=== PATIENT | female | born 1960 | race Caucasian/White ===

== ENCOUNTER 2017-07-26 13:48 | Emergency (ER) | payer MEDICAID, OTHER ==
[~2017-07-26] VITALS: Ht 170.2 cm; Wt 74.8 kg
[2017-07-26 13:51] VITALS: BP 139/81
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
--- NOTE | 2017-07-26 14:03 | NUR ---
Patient being evaluated by DR RIVERS at bedside.
--- NOTE | 2017-07-26 14:34 | NUR ---
PT TAKEN TO [facility].
--- NOTE | 2017-07-26 14:47 | NUR ---
PT RETURNED FROM [facility]
[2017-07-26] MEDS ORDERED: KETOROLAC 60 MG/2 ML VIAL IM ONE (15:25)
--- NOTE | 2017-07-26 15:37 | NUR ---
Patient being reevaluated by DR RIVERS at bedside.
[2017-07-26 16:09] VITALS: BP 123/71
--- NOTE | 2017-07-26 16:09 | NUR ---
Patient discharged with v/s stable. Written and verbal after care instructions given and explained. Patient alert, oriented and verbalized understanding of instructions. Ambulatory with steady gait. All questions addressed prior to discharge. ID band removed. Patient advised to follow up with PMD. Rx of CLINDAMYCIN & KETOROLAC given. Patient educated on indication of medication including possible reaction and side effects. Opportunity to ask questions provided and answered.
== END 2017-07-26 16:09 | disposition home or self-care (01) ==
LOC: MED 13:48
DX: M79.674 Pain in right toe(s) (principal); E11.9 Type 2 diabetes mellitus without complications
CPT/HCPCS: 73660; 96372; 99284; J1885

== ENCOUNTER 2018-04-14 04:53 | Emergency (ER) | payer OTHER ==
[~2018-04-14] VITALS: Ht 170.2 cm; Wt 68.0 kg
[2018-04-14 04:59] VITALS: BP 148/76
--- NOTE | 2018-04-14 04:59 | NUR ---
TO BED # 3 AMBULATORY, REPORT GIVEN TO PETER COELHO
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
--- NOTE | 2018-04-14 05:10 | NUR ---
Dr. Bejarano evaluating patient at bedside.
[2018-04-14 05:42] VITALS: BP 148/76
--- NOTE | 2018-04-14 05:42 | NUR ---
Patient discharged with v/s stable. Written and verbal after care instructions given and explained. Patient alert, oriented and verbalized understanding of instructions. Ambulatory with steady gait. All questions addressed prior to discharge. ID band removed. Patient advised to follow up with PMD. Rx of AUGMENTIN WAS given. Patient educated on indication of medication including possible reaction and side effects. Opportunity to ask questions provided and answered.
== END 2018-04-14 05:42 | disposition home or self-care (01) ==
LOC: MED 04:53
DX: S61.052A Open bite of left thumb without damage to nail, initial encounter (principal); E11.9 Type 2 diabetes mellitus without complications; W53.11XA Bitten by rat, initial encounter; Y93.89 Activity, other specified; Y92.89 Other specified places as the place of occurrence of the external cause; Y99.8 Other external cause status
CPT/HCPCS: 90471; 90715; 99283

== ENCOUNTER 2021-09-11 01:15 | Emergency (ER) | payer OTHER ==
[~2021-09-11] VITALS: Ht 170.2 cm; Wt 86.8 kg
[2021-09-11 01:23] VITALS: BP 137/78
--- NOTE | 2021-09-11 01:27 | NUR ---
PT TAKEN TO BED 7
--- NOTE | 2021-09-11 01:43 | NUR ---
61 y/o f bib daughter . PT STATES SOB SINCE 1 WEEK AGO. ALBUTEROL IF NEEDED AND IT HELPED. COUGH AND TIGHTNESS AND HEAVINESS IN LUNGS. PT DENIES HAVING COVID. DENIES N/V/D; PMH: PRE DIABETIC IDIOPATHIOC THROMBOCYTOPENIA PURPURA x 30 YEARS. SOCIAL HX: NO SMOKING OR DRINKING WEED
--- NOTE | 2021-09-11 01:55 | NUR ---
Dr. Christina examming patient.
[2021-09-11] MEDS: ALBUTEROL SULFATE/IPRATROPIU 3 ML SOL IH ONE (02:11)
[2021-09-11 02:15] LABS: BASOPHILS # (AUTO) 0.1 K/uL (0.00-0.22); BASOPHILS % (AUTO) 1.2 % (0.0-2.0); EOSINOPHILS # (AUTO) 0.5 K/uL (0-0.4); EOSINOPHILS % (AUTO) 8.7 % (0.0-4.0); HEMATOCRIT 39.2 % (36-48); HEMOGLOBIN 13.2 g/dL (12.0-16.0); LYMPHOCYTES # (AUTO) 1.8 K/uL (2.5-16.5); LYMPHOCYTES % (AUTO) 29.1 % (20.5-51.1); MEAN CORPUSCULAR HEMOGLOBIN 29 pg (27-31); MEAN CORPUSCULAR HGB CONC 34 g/dL (33-37); MEAN CORPUSCULAR VOLUME 85.2 fL (80-94); MONOCYTES # (AUTO) 0.5 K/uL (0.8-1.0); NEUTROPHILS # (AUTO) 3.2 K/uL (1.8-7.7); PLATELET COUNT (AUTO) 90 K/uL (140-450); RED BLOOD CELL COUNT(AUTO) 4.61 MIL/uL (4.20-5.40); WHITE BLOOD COUNT (AUTO) 6.1 K/uL (4.8-10.8)
[2021-09-11] MEDS: predniSONE 20 MG TAB PO ONE (02:15)
--- NOTE | 2021-09-11 02:20 | NUR ---
CHAIN HOIST OPERATOR AT BEDSIDE.
--- NOTE | 2021-09-11 02:26 | NUR ---
LEAVE COORDINATOR LEFT PATIENT'S BEDSIDE.
[2021-09-11 02:27] LABS: ANION GAP 12.4 (8-16); CARBON DIOXIDE 27.3 mmol/L (21-32); CREATININE 0.9 mg/dL (0.6-1.3); POTASSIUM 3.7 mmol/L (3.5-5.1)
--- NOTE | 2021-09-11 03:07 | NUR ---
PATIENT AMBULATED TO BR.
[2021-09-11] MEDS ORDERED: PRED20TA5 PO (03:20)
[2021-09-11] MEDS ORDERED: AZIT250T4 PO (03:20)
[2021-09-11] MEDS ORDERED: PROM118S5 PO (03:20)
[2021-09-11] MEDS ORDERED: BENZ200C4 PO (03:20)
[2021-09-11] MEDS ORDERED: ALBU0.0912 INH (03:20)
[2021-09-11 03:37] VITALS: BP 135/76
--- NOTE | 2021-09-11 03:37 | NUR ---
The patient's care was reviewed and supervised by Ml Schmitt RN.
--- NOTE | 2021-09-11 03:37 | NUR ---
Patient discharged with v/s stable. Written and verbal after care instructions given and explained. Patient alert, oriented and verbalized understanding of instructions. Ambulatory with steady gait. All questions addressed prior to discharge. ID band removed. Patient advised to follow up with PMD. Rx of ALBUTEROL SULFATE, ZITHROMAX, BENZONATATE, PROMETHAZINE DM given. Opportunity to ask questions provided and answered.
== END 2021-09-11 03:37 | disposition home or self-care (01) ==
LOC: MED 01:15
DX: J20.9 Acute bronchitis, unspecified (principal); E11.9 Type 2 diabetes mellitus without complications; F12.90 Cannabis use, unspecified, uncomplicated; Z20.822 Contact with and (suspected) exposure to COVID-19; Z87.891 Personal history of nicotine dependence
CPT/HCPCS: 36415; 71045; 80048; 84484; 85025; 87426; 93005; 94640; 99285; J7512; Q0092

== ENCOUNTER 2021-11-06 09:40 | Emergency (ER) | payer OTHER ==
[~2021-11-06] VITALS: Ht 167.6 cm; Wt 90.7 kg
[~2021-11-06 09:40] MED LIST: ALBU0.0912 INH; AZIT250T4 PO; BENZ200C4 PO; PRED20TA5 PO; PROM118S5 PO
--- NOTE | 2021-11-06 09:45 | NUR ---
PT AMBULATED WITH STEADY GAIT TO BED 10
[2021-11-06] MEDS ORDERED: ADENOSINE 6 MG/2 ML VIAL IVP ONE ×3 (09:48→09:50)
[2021-11-06 09:50] VITALS: BP 130/80
--- NOTE | 2021-11-06 09:50 | NUR ---
61 Y/O Female BIB self for c/o rapid HR. Pt plaed on the monitor/pads with pt HR @170. AOX4, able to make needs known. Resp even and unknown. pt placed on pads to monitor HR. EKG shows SVT.. Dr Son at bedside with order to IVP adenosine 6mg. IV access gained to LAC. Adenosine administrated with Dr Son at bedside and on monitor. PmHx: SVT, Pre-DM, cataracts. NKA
--- NOTE | 2021-11-06 09:54 | NUR ---
0953 Adenosine 6mg
--- NOTE | 2021-11-06 09:56 | NUR ---
RAD at bedside
--- NOTE | 2021-11-06 09:57 | NUR ---
Blood work walked to lab and handed to CPT. Oma
--- NOTE | 2021-11-06 10:11 | NUR ---
Dr Son at bedside to re-evaluate pt. Per Doc, ok to eat/drink. Brought pt a meal and drink. VSS
[2021-11-06 10:19] LABS: PROTHROMBIN TIME 13.8 secs (10.8-13.4)
[2021-11-06 10:23] LABS: ALBUMIN 4.2 g/dL (3.4-5.0); CREATININE 1.1 mg/dL (0.6-1.3); TOTAL BILIRUBIN 0.5 mg/dL (0.0-1.0)
[2021-11-06 10:39] LABS: BASOPHILS # (AUTO) 0.1 K/uL (0.00-0.22); BASOPHILS % (AUTO) 1.2 % (0.0-2.0); EOSINOPHILS # (AUTO) 0.5 K/uL (0-0.4); EOSINOPHILS % (AUTO) 5.8 % (0.0-4.0); HEMATOCRIT 46.8 % (36-48); HEMOGLOBIN 15.4 g/dL (12.0-16.0); LYMPHOCYTES # (AUTO) 3.5 K/uL (2.5-16.5); MEAN CORPUSCULAR HEMOGLOBIN 29 pg (27-31); MEAN CORPUSCULAR HGB CONC 33 g/dL (33-37); MEAN CORPUSCULAR VOLUME 86.8 fL (80-94); MONOCYTES # (AUTO) 0.5 K/uL (0.8-1.0); MONOCYTES % (AUTO) 5.9 % (1.7-9.3); NEUTROPHILS # (AUTO) 3.6 K/uL (1.8-7.7); NEUTROPHILS % (AUTO) 44.1 % (42.2-75.2); PLATELET COUNT (AUTO) 114 K/uL (140-450); RED BLOOD CELL COUNT(AUTO) 5.39 MIL/uL (4.20-5.40); RED CELL DISTRIBUTION WIDTH 14.3 % (11.6-13.7); WHITE BLOOD COUNT (AUTO) 8.1 K/uL (4.8-10.8)
[2021-11-06 11:40] VITALS: BP 142/85
--- NOTE | 2021-11-06 11:42 | NUR ---
IV removed, catheter intact and site benign. Applied folded 4x4 gauze and tape to stop bleeding.
--- NOTE | 2021-11-06 11:43 | NUR ---
Patient does not wish to proceed with medical care recommended by . Patient given information related to possible complications, up to and including , which could occur as a result of leaving hospital at this time. Patient verbalizes understanding of risks involved leaving against medical advice. Patient has signed AMA form.
== END 2021-11-06 11:30 | disposition left against medical advice (07) ==
LOC: MED 09:40
DX: I47.1 Supraventricular tachycardia (principal); R00.2 Palpitations; Z79.899 Other long term (current) drug therapy
CPT/HCPCS: 36415; 71045; 80053; 83880; 84484; 85025; 85610; 85730; 93005; 96374; 99291; J0153